=== PATIENT | female | born 1980 | race African-American/Black ===

== ENCOUNTER 2020-02-06 23:33 | Emergency (ER) | payer OTHER ==
[~2020-02-06] VITALS: Ht 147.3 cm; Wt 74.8 kg
[2020-02-07 00:15] LABS: URINE BILIRUBIN NEGATIVE (Negative); URINE BLOOD NEGATIVE (Negative); URINE CLARITY CLEAR; URINE COLOR YELLOW; URINE GLUCOSE-RANDOM* NEGATIVE (Negative); URINE KETONES NEGATIVE (Negative); URINE LEUKOCYTES-REFLEX NEGATIVE (Negative); URINE NITRITE-REFLEX NEGATIVE (Negative); URINE PROTEIN (DIPSTICK) NEGATIVE (Negative); URINE SPECIFIC GRAVITY 1.025 (1.005-1.035)
[2020-02-07 03:02] VITALS: BP 152/94
== END 2020-02-07 03:03 | disposition home or self-care (01) ==
LOC: ER 23:33
PROVIDERS: Emergency Medicine
DX: J06.9 Acute upper respiratory infection, unspecified (principal); B97.89 Other viral agents as the cause of diseases classified elsewhere; I10 Essential (primary) hypertension; G43.909 Migraine, unspecified, not intractable, without status migrainosus; Z20.828 Contact with and (suspected) exposure to other viral communicable diseases

== ENCOUNTER 2021-02-22 22:09 | Emergency (ER) | payer OTHER ==
[~2021-02-22] VITALS: Ht 147.3 cm; Wt 72.6 kg
[2021-02-22 22:36] LABS: URINE BILIRUBIN NEGATIVE (Negative); URINE BLOOD NEGATIVE (Negative); URINE CLARITY CLEAR; URINE COLOR YELLOW; URINE GLUCOSE-RANDOM* NEGATIVE (Negative); URINE KETONES NEGATIVE (Negative); URINE LEUKOCYTES-REFLEX NEGATIVE (Negative); URINE NITRITE-REFLEX NEGATIVE (Negative); URINE PROTEIN (DIPSTICK) NEGATIVE (Negative); URINE SPECIFIC GRAVITY >= 1.030 (1.005-1.035); URINE UROBILINOGEN 0.2 E.U./dl (0.2-1.0)
[2021-02-23] MEDS ORDERED: ZOFRAN ODT4 MG DISSOLVE (02:12)
[2021-02-23 02:19] VITALS: BP 169/89
== END 2021-02-23 02:25 | disposition home or self-care (01) ==
LOC: ER 22:09
PROVIDERS: Nurse Practitioner
DX: R11.2 Nausea with vomiting, unspecified (principal); M54.5 Low back pain; M19.90 Unspecified osteoarthritis, unspecified site; G43.909 Migraine, unspecified, not intractable, without status migrainosus; I10 Essential (primary) hypertension; Z20.822 Contact with and (suspected) exposure to COVID-19; Z90.710 Acquired absence of both cervix and uterus; Z88.6 Allergy status to analgesic agent; Z88.5 Allergy status to narcotic agent; Z91.041 Radiographic dye allergy status